=== PATIENT | female | born 1955 | race Caucasian/White ===

== ENCOUNTER 2016-12-15 09:56 | Emergency (ER) | payer BC ==
--- NOTE | 2016-12-15 10:59 | UC ---
Respiratory Complaint HPI - HPI Summary HPI Summary: Pt presents with c/o cough, SOB, chest congestion X 1 week. Denies fever, chills or night sweats. - History of Current Complaint Chief Complaint: UCRespiratory Stated Complaint: COUGH, CONGESTION Time Seen by Provider: 12/15/16 10:35 Hx Obtained From: Patient ?: No Onset/Duration: Gradual Onset, Lasting Weeks - 1 week Timing: Constant Severity Initially: Mild Severity Currently: Mild Character: Cough: Nonproductive Aggravating Factors: Deep Breaths, Recumbent Position Alleviating Factors: Nothing Associated Signs And Symptoms: Positive: URI, Nasal Congestion, Hoarseness - Risk Factors Pulmonary Embolism Risk Factors: Smoking - past hx Cardiac Risk Factors: Hypertension - Allergies/Home Medications Allergies/Adverse Reactions: Allergies Allergy/AdvReac Type Severity Reaction Status Date / Time No Known Allergies Allergy Verified 12/15/16 10:41 PMH/Surg Hx/FS Hx/Imm Hx Previously Healthy: Yes Cardiovascular History: Hypertension Respiratory History: Other - Hx of smoking X 20 years. Quit 20 years ago Other Respiratory History: past history of smoking - Surgical History Surgical History: Yes Surgery Procedure, Year, and Place: Tonsilectomy. tubal ligation. 3 foot surgeries. ankle fusion - Social History Lives: With Family Alcohol Use: Daily Alcohol Amount: beer and wine Substance Use Type: None Smoking Status (MU): Never Smoked Tobacco Review of Systems Constitutional: Fatigue Skin: Negative Eyes: Negative ENT: Sore Throat, Other - nasal congestion, PND Respiratory: Cough Cardiovascular: Negative Gastrointestinal: Negative Genitourinary: Negative Motor: Negative Neurovascular: Negative Musculoskeletal: Negative Neurological: Negative Psychological: Negative All Other Systems Reviewed And Are Negative: Yes Physical Exam Triage Information Reviewed: Yes Appearance: Well-Appearing Vital Signs: Initial Vital Signs Temp 98.4 F 12/15/16 10:36 Pulse 68 12/15/16 10:36 Resp 16 12/15/16 10:36 BP 147/84 12/15/16 10:36 Pulse Ox 97 12/15/16 10:36 Vital Signs Reviewed: Yes Eye Exam: Normal ENT Exam: Other ENT: Positive: Nasal congestion, Other: - PND Neck exam: Normal Respiratory Exam: Normal Respiratory: Positive: No respiratory distress Cardiovascular Exam: Normal Musculoskeletal Exam: Normal Neurological Exam: Normal Psychological Exam: Normal Skin Exam: Normal UC Diagnostic Evaluation - Laboratory O2 Sat by Pulse Oximetry: 97 Respiratory Course/Dx - Differential Dx/Diagnosis Differential Diagnosis/HQI/PQRI: Bronchitis, Pulmonary Embolism Provider Diagnoses: URI. Cough Discharge - Discharge Plan Condition: Stable Disposition: HOME Prescriptions: Albuterol HFA INHALER* [Ventolin HFA Inhaler*] 1 - 2 puff INH Q6H PRN #1 mdi PRN Reason: Cough Benzonatate CAP* [Tessalon 100 MG CAP*] 100 mg PO TID PRN #21 cap PRN Reason: Cough Chlorpheniramine-Dm [Coricidin Hbp Cough & Col] 1 tab PO DAILY PRN #10 tab PRN Reason: Cough methylPREDNISolone TAB* [Medrol TAB*] 4 - 8 mg PO .SEE SUKHJINDER #1 sukhjinder Patient Education Materials: Upper Respiratory Infection (ED) Referrals: Do Dueñas MD [Primary Care Provider] - As Soon As Possible
[2016-12-15 11:03] VITALS: BP 147/84
== END 2016-12-15 11:20 | disposition home or self-care (01) ==
LOC: UCCORT 09:56
DX: J06.9 Acute upper respiratory infection, unspecified (principal); R05 Cough; Z87.891 Personal history of nicotine dependence; I10 Essential (primary) hypertension
CPT/HCPCS: 99212; G0463

== ENCOUNTER 2017-06-12 09:54 | Emergency (ER) | payer BC ==
--- NOTE | 2017-06-12 13:33 | UC ---
FLU HPI - HPI Summary HPI Summary: day 2 of fever chills cough body aches 2 grandchildren with flu-did get a flu vaccine this fall - History of Current Complaint Hx Obtained From: Patient ?: No Onset/Duration: Sudden Onset, Lasting Days - 2 Severity Currently: Moderate Severity Initially: Moderate Associated Signs & Symptoms: Positive: Fever, Myalgia, Cough, Nasal Congestion, Headache Related Hx: Possible Flu/Infectious Exposure <Kalli León - Last Filed: 06/12/17 20:06> <Roxy Storm - Last Filed: 06/14/17 09:52> - History of Current Complaint Chief Complaint: UCRespiratory Stated Complaint: FLU SYMPTOMS Time Seen by Provider: 06/12/17 13:32 - Allergy/Home Medications Allergies/Adverse Reactions: Allergies Allergy/AdvReac Type Severity Reaction Status Date / Time No Known Allergies Allergy Verified 06/12/17 13:41 PMH/Surg Hx/FS Hx/Imm Hx Previously Healthy: No Endocrine History: Dyslipidemia Cardiovascular History: Hypertension Psychological History: Depression - Surgical History Surgical History: Yes Surgery Procedure, Year, and Place: Tonsilectomy. tubal ligation. 3 foot surgeries. ankle fusion - Family History Known Family History: Positive: None - Social History Occupation: Retired Lives: With Family Alcohol Use: Daily Alcohol Amount: beer and wine Substance Use Type: None Smoking Status (MU): Never Smoked Tobacco <Kalli León - Last Filed: 06/12/17 20:06> Review of Systems Constitutional: Fever, Chills, Fatigue Skin: Negative Eyes: Negative ENT: Sore Throat, Ear Ache, Nasal Discharge Respiratory: Cough Cardiovascular: Negative Gastrointestinal: Negative Genitourinary: Negative Motor: Negative Neurovascular: Negative Musculoskeletal: Arthralgia, Myalgia Neurological: Negative Psychological: Negative Is Patient Immunocompromised?: No All Other Systems Reviewed And Are Negative: Yes <Kalli León - Last Filed: 06/12/17 20:06> Physical Exam Triage Information Reviewed: Yes Appearance: Well-Nourished, Ill-Appearing, Pain Distress Vital Signs Reviewed: Yes Eye Exam: Normal Eyes: Positive: Conjunctiva Clear ENT Exam: Normal ENT: Positive: Normal ENT inspection, Hearing grossly normal, Pharynx normal, Nasal congestion, Nasal drainage, TMs normal, Uvula midline. Negative: Tonsillar swelling, Trismus, Muffled voice, Hoarse voice Dental Exam: Normal Neck exam: Normal Neck: Positive: Supple, Nontender, No Lymphadenopathy Respiratory Exam: Normal Respiratory: Positive: Chest non-tender, Lungs clear, Normal breath sounds, No respiratory distress, No accessory muscle use Cardiovascular Exam: Normal Cardiovascular: Positive: RRR, No Murmur, Pulses Normal, Brisk Capillary Refill Musculoskeletal Exam: Normal Musculoskeletal: Positive: Strength Intact, ROM Intact, No Edema Neurological Exam: Normal Neurological: Positive: Alert, Muscle Tone Normal, Fatigued Psychological Exam: Normal Psychological: Positive: Normal Response To Family Skin Exam: Normal <Kalli León - Last Filed: 06/12/17 20:06> Vital Signs: Initial Vital Signs Temp 102.3 F 06/12/17 13:42 Pulse 84 06/12/17 13:42 Resp 16 06/12/17 13:42 BP 147/68 06/12/17 13:42 Pulse Ox 95 06/12/17 13:42 <Roxy Storm - Last Filed: 06/14/17 09:52> Diagnostics - Laboratory Diagnostic Studies Completed/Ordered: RST (+) <Kalli León - Last Filed: 06/12/17 20:06> Flu Course/Dx - Course Course Of Treatment: tamiflu, increase fluids, robitussin with codiene, tylenol , ibuprofen follow with pcp - Differential Dx/Diagnosis Provider Diagnoses: Influenza A <Kalli León - Last Filed: 06/12/17 20:06> Discharge <Kalli León - Last Filed: 06/12/17 20:06> <Roxy Storm - Last Filed: 06/14/17 09:52> - Discharge Plan Condition: Stable Disposition: HOME Prescriptions: Guaifenesin-Codeine [Guaiatussin AC] 5 ml PO QID PRN #45 ml MDD 20ml PRN Reason: cough Oseltamivir CAP* [Tamiflu CAP*] 75 mg PO BID #10 cap Patient Education Materials: Acetaminophen (By mouth), Influenza (ED), Hypertension (ED) Referrals: Shaheen Hamm MD [Primary Care Provider] - 1 Week Attestation Statement User Type: Provider - I was available for consult. This patient was seen by the [facility]. The patient was not presented to, seen by, or examined by me. -Jonathan <Roxy Storm - Last Filed: 06/14/17 09:52>
[2017-06-12 13:49] VITALS: BP 147/68
[2017-06-12] MEDS ORDERED: Acetaminophen TAB* 325 MG PO ONE (13:54)
== END 2017-06-12 14:28 | disposition home or self-care (01) ==
LOC: UCCORT 09:54
DX: J09.X2 Influenza due to identified novel influenza A virus with other respiratory manifestations (principal); Z72.89 Other problems related to lifestyle
CPT/HCPCS: 87502; 99212; A9270-GY; G0463